=== PATIENT | male | born 1970 | race Caucasian/White ===

== ENCOUNTER 2017-02-24 17:38 | Emergency (ER) | payer OTHER ==
[~2017-02-24] VITALS: Ht 167.6 cm; Wt 108.0 kg
--- NOTE | 2017-02-24 18:08 | ED EYE COMPLAINT ---
History of Present Illness General Chief Complaint: Eye Problems Stated Complaint: RIGHT EYE, METAL POSSIBLE IN EYE Source: patient Exam Limitations: no limitations Vital Signs & Intake/Output Vital Signs & Intake/Output Vital Signs Date Time Temp Pulse Resp B/P Pulse O2 O2 Flow FiO2 Ox Delivery Rate 02/24 1820 97.0 84 16 132/94 97 Room Air Allergies Coded Allergies: bacitracin (HIVES 02/24/17) Reconcile Medications Amlodipine Besylate 2.5 MG TABLET 1 TAB PO DAILY BP (Reported) Losartan/Hydrochlorothiazide (Losartan-Hctz 100-25 MG Tab) 100 MG-25 MG TABLET 1 TAB PO DAILY BP (Reported) Multivitamin (Multi-Day Vitamins) 1 EACH TABLET 1 TAB PO DAILY SUPPLEMENT ( Reported) [place]-3/Dha/Epa/Fish Oil (Fish Oil 1,000 MG Softgel) (Unknown Strength) CAPSULE (Unknown Dose) PO DAILY SUPPLEMENT (Reported) Polytrim (Polytrim Eye Drops) 10,000 UNIT-1 MG/ML DROPS 1 GTT OPH Q6 RIGHT EYE FB Turmeric Root Extract (Turmeric) (Unknown Strength) CAPSULE (Unknown Dose) PO DAILY SUPPLEMENT (Reported) Venlafaxine HCl (Venlafaxine HCl ER) 75 MG CAP.ER.24H 1 CAP PO DAILY MENTAL HEALTH (Reported) Vitamin B Complex (Unknown Strength) CAPSULE (Unknown Dose) PO DAILY SUPPLEMENT (Reported) Triage Nurses Notes Reviewed? yes Onset: Abrupt Duration: constant Timing: single episode today Injury Environment: home Severity: moderate Severity Numbers: 5 No Modifying Factors: none HPI: Patient is a 46-year-old male who presents emergency and that today while at work patient was wearing protective eye lens wear without contacts where he was cutting metal where he noted acute onset of foreign body sensation to the right eye. Patient has stated that he flushed it out significantly after the episode however is still complaining of mild right eye foreign body and pain. Patient has associated symptoms of right eye blurred vision. Tetanus is up-to-date. No medications given prior to arrival. Past History Travel History Traveled to [place] past 21 day No Medical History Any Pertinent Medical History? none Surgical History Surgical History: non-contributory Family History Hx Contributory? No Review of Systems Review of Systems Constitutional: Reports: no symptoms. Eyes: Reports: see HPI, foreign body sensation, pain. Ear: Reports: no symptoms. Nose: Reports: no symptoms. Mouth: Reports: no symptoms. Throat: Reports: no symptoms. Respiratory: Reports: no symptoms. Cardiovascular: Reports: no symptoms. GI: Reports: no symptoms. Genitourinary: Reports: no symptoms. Musculoskeletal: Reports: no symptoms. Skin: Reports: no symptoms. Neurological/Psychological: Reports: no symptoms. Hematologic/Endocrine: Reports: no symptoms. Immunologic/Allergic: Reports: no symptoms. All Other Systems: Reviewed and Negative Physical Exam General Appearance: well developed/nourished, no apparent distress, alert General Inspection: normal inspection Eyelid: normal inspection Conjunctiva/Sclera: normal inspection Cornea: normal inspection EOM: intact Pupil: normal accommodation, normal pupil, PERRL General Inspection: normal inspection Eyelid: normal inspection, everted for exam Conjunctiva/Sclera: normal inspection Cornea: normal inspection, examined w/fluorescein EOM: intact Pupil: normal accommodation, normal pupil, PERRL Physical Exam Head: atraumatic Nose: normal inspection Mouth/Throat: normal mouth inspection Neck: normal inspection, supple Cardiovascular/Respiratory: normal breath sounds, regular rate/rhythm Neurologic/Psych: awake, alert, oriented x 3, normal mood/affect Skin: intact, normal color, warm/dry Progress Differential Diagnosis: corneal abrasion, corneal foreign body, conjunctivitis, detached retina, glaucoma, globe rupture, retinal art./v. occlusion Plan of Care: On physical exam findings there is no signs of foreign body AFTER FLUOROSCEINE staining there was no uptake and no signs of foreign body no signs of corneal abrasion Patient was PERRLA Extraocular motions were intact patient was strongly advised to follow-up with their established director market intelligence tomorrow for further evaluation treatment at this time there are no signs of foreign body patient was however given prophylactic infection prevention with Polytrim. Departure Departure Disposition: HOME OR SELF CARE Condition: Stable Clinical Impression Primary Impression: Pain, eye, right Secondary Impressions: Foreign body, eye Additional Instructions: As discussed if symptoms worsen return to emergency room. Begin the prescription of Polytrim as directed for the full course. Follow-up tomorrow with your established director market intelligence. Prescriptions waiting at your pharmacy Departure Forms: Customer Survey General Discharge Information Prescriptions: Current Visit Scripts Polytrim (Polytrim Eye Drops) 1 GTT OPH Q6 #10 ML
[2017-02-24 18:20] VITALS: BP 132/94
[2017-02-24] MEDS ORDERED: VENLAFAXINE HCL75 M1 PO (18:45)
[2017-02-24] MEDS ORDERED: FISH OIL 1,001000 MG PO (18:45)
[2017-02-24] MEDS ORDERED: AMLODIPINE BES2.5 M1 PO (18:45)
[2017-02-24] MEDS ORDERED: LOSARTAN-HCTZ1 EAC2 PO (18:45)
[2017-02-24] MEDS ORDERED: VITAMIN B COMP1 EACH PO (18:46)
[2017-02-24] MEDS ORDERED: MULTI-DAY VITA1 EACH PO (18:46)
[2017-02-24] MEDS ORDERED: TURMERIC500 M1 PO (18:47)
[2017-02-24] MEDS ORDERED: POLYTRIM EYE DR10 ML OPH (19:27)
== END 2017-02-24 19:35 ==
LOC: ERH 17:38
DX: T15.01XA Foreign body in cornea, right eye, initial encounter (principal); H57.11 Ocular pain, right eye; Y93.89 Activity, other specified; Y92.9 Unspecified place or not applicable